=== PATIENT | male | born 1970 | race Hispanic/Latino ===

== ENCOUNTER 2025-06-09 09:58 | Emergency (ER) | payer OTHER ==
[~2025-06-09] VITALS: Ht 175.3 cm; Wt 79.5 kg
[2025-06-09] MEDS: FAMOTIDINE 20 MG/2 ML VIAL IV ONE (10:34)
[2025-06-09] MEDS: LACTATED RINGER'S 1,000 ML INJ ONE (10:35)
[2025-06-09] MEDS: ONDANSETRON HCL INJ 2MG/ML 2ML 2 MG/ML VIAL IV ONE (10:35)
[2025-06-09] MEDS: KETOROLAC TROMETHAMINE 30 MG/ML VIAL IV STA (10:35)
[2025-06-09] MEDS: HYDROCODONE/APAP 5MG-325MG TAB PO ONE (11:38)
[2025-06-09] MEDS ORDERED: KETOROLAC TROME10 MG PO (11:38)
[2025-06-09] MEDS ORDERED: HYDROCODON-ACE1 EA11 PO (11:38)
[2025-06-09] MEDS ORDERED: ONDANSETRON ODT4 MG PO (11:38)
[2025-06-09 12:03] VITALS: PULSE 80; RESP 16; TEMP 97.7; O2SAT 98
== END 2025-06-09 12:03 | disposition home or self-care (01) ==
LOC: EDSEX 09:58 → FSED 10:06
DX: R10.31 Right lower quadrant pain (principal); N13.2 Hydronephrosis with renal and ureteral calculous obstruction; R11.0 Nausea
CPT/HCPCS: 74176; 80053; 81003; 85025; 96374; 96375; 99284; J1308; J1885; J2405; J7121